=== PATIENT | male | born 1960 | race African-American/Black ===

== ENCOUNTER 2020-05-09 12:25 | Emergency (ER) | payer BC ==
[~2020-05-09] VITALS: Ht 167.6 cm; Wt 80.0 kg
[~2020-05-09 12:25] MED LIST: lipitor
[2020-05-09 14:31] LABS: BASOPHILS % 1.4 % (0.0-2.0); EOSINOPHILS % 5.6 % (0.0-5.0); HEMATOCRIT. 44.4 % (42.0-52.0); HEMOGLOBIN. 15.2 g/dL (14.0-18.0); LYMPHOCYTES % 25.7 % (20.0-50.0); MEAN CORPUSCULAR HEMOGLOBIN 29.6 pg (28.0-32.0); MEAN CORPUSCULAR VOLUME 86.7 fL (80.0-94.0); MEAN PLATELET VOLUME 8.2 fl (7.4-10.4); MONOCYTES % 7.6 % (2.0-8.0); NEUTROPHILS % 59.7 % (40.0-76.0); PLATELET 265 x1000/uL (130-400); RED BLOOD CELL COUNT 5.13 mill/uL (4.7-6.1); RED CELL DISTRIBUTION WIDTH 13.2 % (11.6-14.6)
[2020-05-09 14:38] LABS: CHLORIDE 108 mEq/L (98-107)
[2020-05-09 15:52] VITALS: BP 124/69
== END 2020-05-09 15:53 | disposition home or self-care (01) ==
LOC: ER 13:10
DX: R07.81 Pleurodynia (principal)
CPT/HCPCS: 36415; 71045; 80053; 83880; 84484; 85025; 93005; 99285